=== PATIENT | female | born 1975 | race American Indian/Alaskan Native ===

== ENCOUNTER 2021-02-12 23:41 | Emergency (ER) | payer SELFPAY ==
[2021-02-13 00:11] VITALS: BP 154/98
[2021-02-13] MEDS ORDERED: ASPIRIN 325 MG TAB PO ONE (00:13)
[2021-02-13 00:34] LABS: Basophils % (Auto) 0.4 % (0.0-1.8); Eosinophils % (Auto) 0.4 % (0.0-4.3); Hematocrit 44.4 % (30.3-42.9); Hemoglobin 15.1 gm/dl (10.1-14.3); Lymphocytes # (Auto) 2.5 K/mm3 (1.2-5.4); Mean Corpuscular HGB Conc 34 % (30-34); Mean Corpuscular Volume 95 fl (79-97); Monocytes # (Auto) 0.8 K/mm3 (0.0-0.8); Monocytes % (Auto) 7.6 % (0.0-7.3); Platelet Count 265 K/mm3 (140-440); Red Blood Count 4.69 M/mm3 (3.65-5.03); Red Cell Distribution Width 14.1 % (13.2-15.2)
--- NOTE | 2021-02-13 00:42 | XRay Report ---
CHEST 2 VIEWS INDICATION / CLINICAL INFORMATION: chest pain. FINDINGS: SUPPORT DEVICES: None. HEART / MEDIASTINUM: No significant abnormality. LUNGS / PLEURA: No significant pulmonary or pleural abnormality. No pneumothorax. ADDITIONAL FINDINGS: No significant additional findings. IMPRESSION: 1. No acute findings. Signer Name: Shawn Momin MD Signed: 02/13/2021 12:38 AM Workstation Name: [id number]
[2021-02-13 00:52] LABS: Alanine Aminotransferase 29 units/L (7-56); Albumin 4.4 g/dL (3.9-5); BUN/Creatinine Ratio 23; Blood Urea Nitrogen 23 mg/dL (7-17); Calcium 9.2 mg/dL (8.4-10.2); Hemolysis Index 6
--- NOTE | 2021-02-13 11:14 | Electrocardiograph Report ---
[facility] Test Date: 2021-02-12 Test Time: 23:54:11 Pat Name: JOLENE FLOREZ Department: Room: Gender: F Vehicle Monitor Technician: ROSALIO : 1975 Requested By: AAKASH CUEVA III Order Number: [id number] Reading MD: Rio Berkowitz Measurements Intervals [place] Rate: 82 P: 74 MI: 126 QRS: 68 QRSD: 74 T: -40 QT: 375 QTc: 438 Interpretive Statements Sinus rhythm Probable LVH with secondary repol abnrm No previous ECG available for comparison Electronically Signed On 02-13-2021 11:14:41 EDT by Rio Berkowitz
== END 2021-02-13 03:30 | disposition left against medical advice (07) ==
LOC: ED 23:41
DX: R07.9 Chest pain, unspecified (principal); Z53.21 Procedure and treatment not carried out due to patient leaving prior to being seen by health care provider; Z01.30 Encounter for examination of blood pressure without abnormal findings
CPT/HCPCS: 36415; 71046; 80053; 84484; 85025; 93005